=== PATIENT | male | born 1965 | race Caucasian/White ===

== ENCOUNTER → 2018-07-06 | Outpatient (CLI) | payer OTHER ==
--- NOTE | 2018-07-06 12:22 | US ---
EXAMINATION TYPE: US scrotum with doppler. DATE OF EXAM: 07/06/2018 COMPARISON: NONE CLINICAL HISTORY: 53-year-old male N50.8 specified disorders of male genital organs. Larger left test icle as compared to right, no pain, no injury, patient noticed change in size for 1 year TECHNIQUE: Grayscale and color Doppler Duplex imaging performed of the scrotum. FINDINGS: EXAM MEASUREMENTS: TESTICLES: Right Testicle: 4.1 x 2.8 x 2.7 cm Left Testicle: 4.4 x 2.9 x 2.4 cm Relatively symmetric size and appearance of both testicles with homogeneous echotexture and satisfact ory arterial and venous flow. EPIDIDYMIS HEAD: Right Epididymis: 0.9 cm Left Epididymis: 0.8 cm Doppler performed to assess for testicular vascularity; good bilateral color flow and waveforms are s een. There is no evidence of testicular torsion. Presence of hydroceles: Moderate on the right. Multilocular cystic structure lateral and superior to the left testicle measuring up to 6.0 x 2.7 cm. Presence of varicoceles: no IMPRESSION: 1. Symmetric and normal-appearing testicles. No evidence for testicular torsion or testicular mass. 2. Moderate-sized simple hydrocele on the right. 3. Multilocular cystic structure lateral and superior to the left testicle measuring up to 6.0 x 2.7 cm. Some differential considerations include a complex, septated hydrocele and cystadenoma. Urology r eferral to further evaluate.
== END | disposition home or self-care (01) ==
LOC: RADUSWWP 10:26
PROVIDERS: ATTEND Internal Medicine
DX: N43.3 Hydrocele, unspecified (principal); N44.2 Benign cyst of testis
CPT/HCPCS: 76870; 93975

== ENCOUNTER → 2018-09-14 | Outpatient (CLI) | payer OTHER ==
[2018-09-14 08:51] LABS: Basophils # (A) 0.1 k/uL (0-0.2); Basophils % (A) 1 %; Eosinophils # (A) 0.5 k/uL (0-0.7); Eosinophils % (A) 4 %; HCT 49.2 % (39.0-53.0); HGB 16.6 gm/dL (13.0-17.5); Lymphocytes # (A) 2.9 k/uL (1.0-4.8); Lymphocytes % (A) 19 %; MCH 31.2 pg (25.0-35.0); MCHC 33.7 g/dL (31.0-37.0); MCV 92.5 fL (80.0-100.0); Mean Platelet Volume 7.4; Monocytes % (A) 7 %; Neutrophils # (A) 10.2 k/uL (1.3-7.7); Neutrophils % (A) 68 %; Platelet Count 268 k/uL (150-450); RBC 5.32 m/uL (4.30-5.90); RDW 12.3 % (11.5-15.5)
[2018-09-14 09:05] LABS: Prothrombin Time 10.7 sec (9.0-12.0)
[2018-09-14 09:12] LABS: Albumin 4.3 g/dL (3.5-5.0); Bilirubin, Delta 0.2 mg/dL (0.0-0.2); Bilirubin,Unconjugated 0.4 mg/dL (0.0-1.1); Total Bilirubin 0.6 mg/dL (0.2-1.3); Total Protein 7.5 g/dL (6.3-8.2)
--- NOTE | 2018-09-14 16:31 | US ---
EXAMINATION TYPE: US liver DATE OF EXAM: 09/14/2018 COMPARISON: NONE CLINICAL HISTORY: B18.2 CHRONIC HEP C. Viral hep C, patient states no other symptoms. EXAM MEASUREMENTS: Liver Length: 19.6 cm Gallbladder Wall: 0.2 cm CBD: 0.5 cm Right Kidney: 10.9 x 5.3 x 5.0 cm Pancreas: obscured by overlying midline bowel gas Liver: enlarged, mildly heterogeneous Gallbladder: wnl Evidence for sonographic Escudero's sign: no CBD: wnl Right Kidney: wnl IMPRESSION: 1. Liver is enlarged. No discrete masses are evident.
[2018-09-16 13:52] LABS: HCV Quant Log 5.63 (<1.08)
== END ==
LOC: RADUSWWP 07:40
PROVIDERS: ATTEND Physician Assistant
DX: R16.0 Hepatomegaly, not elsewhere classified (principal); B18.2 Chronic viral hepatitis C
CPT/HCPCS: 36415; 76705; 80076; 85025; 85610; 87522

== ENCOUNTER → 2018-12-18 | Outpatient (CLI) | payer OTHER ==
[2018-12-18 11:23] LABS: Basophils # (A) 0.1 k/uL (0-0.2); Basophils % (A) 1 %; Eosinophils # (A) 0.5 k/uL (0-0.7); Eosinophils % (A) 4 %; HCT 49.5 % (39.0-53.0); HGB 16.6 gm/dL (13.0-17.5); Lymphocytes # (A) 2.2 k/uL (1.0-4.8); Lymphocytes % (A) 18 %; MCH 30.7 pg (25.0-35.0); MCHC 33.6 g/dL (31.0-37.0); MCV 91.3 fL (80.0-100.0); Mean Platelet Volume 8.2; Monocytes # (A) 0.8 k/uL (0-1.0); Monocytes % (A) 6 %; Neutrophils # (A) 8.3 k/uL (1.3-7.7); Neutrophils % (A) 69 %; Platelet Count 258 k/uL (150-450); RBC 5.42 m/uL (4.30-5.90); RDW 11.8 % (11.5-15.5); WBC 12.1 k/uL (3.8-10.6)
[2018-12-18 17:23] LABS: Albumin 4.8 g/dL (3.80-4.90); Albumin/Globulin Ratio 1.92 (1.60-3.17); Bilirubin, Conjugated 0.2 mg/dL (0.20-0.40); Bilirubin,Unconjugated 0.4 mg/dL; Globulin 2.5 g/dL (1.6-3.3); Total Bilirubin 0.6 mg/dL (0.3-1.2); Total Protein 7.3 g/dL (6.2-8.2)
[2018-12-21 08:24] LABS: Hepatits C Virus RNA DETECTED (Not detected); Hepatits C Virus RNA, Quant <12 IU/mL (<12); LOG HCV IU/mL <1.08 (<1.08)
== END | disposition home or self-care (01) ==
LOC: LABWHC1 10:54
PROVIDERS: ATTEND Physician Assistant
DX: B18.2 Chronic viral hepatitis C (principal)
CPT/HCPCS: 36415; 80076; 85025; 87522

== ENCOUNTER → 2019-01-12 | Outpatient (CLI) | payer OTHER ==
[2019-01-12 11:26] LABS: Basophils # (A) 0.1 k/uL (0-0.2); Basophils % (A) 1 %; Eosinophils # (A) 0.6 k/uL (0-0.7); Eosinophils % (A) 5 %; HCT 46.7 % (39.0-53.0); HGB 15.8 gm/dL (13.0-17.5); Lymphocytes # (A) 2.4 k/uL (1.0-4.8); Lymphocytes % (A) 20 %; MCH 30.8 pg (25.0-35.0); MCHC 33.9 g/dL (31.0-37.0); MCV 90.8 fL (80.0-100.0); Mean Platelet Volume 8.5; Monocytes # (A) 0.8 k/uL (0-1.0); Monocytes % (A) 6 %; Neutrophils # (A) 7.8 k/uL (1.3-7.7); Neutrophils % (A) 65 %; Platelet Count 222 k/uL (150-450); RBC 5.14 m/uL (4.30-5.90); RDW 13.2 % (11.5-15.5); WBC 11.9 k/uL (3.8-10.6)
[2019-01-12 17:27] LABS: ALT 25 U/L (10-49); AST 28 U/L (14-35); Alkaline Phosphatase 76 U/L (41-126); Globulin 2.3 g/dL (1.6-3.3); Total Bilirubin <0.1 mg/dL (0.2-1.2); Total Protein 6.9 g/dL (6.2-8.2)
== END | disposition home or self-care (01) ==
LOC: LABWHC1 10:16
PROVIDERS: ATTEND Physician Assistant
DX: B18.2 Chronic viral hepatitis C (principal)
CPT/HCPCS: 36415; 80076; 85025; 85610; 87522

== ENCOUNTER → 2023-07-02 | Day surgery (SDC) | payer OTHER ==
--- NOTE | 2023-07-01 19:07 | P.GSHP ---
History of Present Illness H&P Date: 07/01/23 58 yo male with a symptomatic right hydrocele who comes for a right hydrocelectomy. The risks , complications and alternatives have been explained understood and accepted - Constitutional Constitutional: Denies chills, Denies fever - EENT Eyes: denies blurred vision, denies pain Ears, nose, mouth and throat: Denies headache, Denies sore throat - Cardiovascular Cardiovascular: Denies chest pain, Denies shortness of breath - Respiratory Respiratory: Denies cough, Denies 7 - Gastrointestinal Gastrointestinal: Denies abdominal pain, Denies diarrhea, Denies nausea, Denies vomiting - Genitourinary (Female) Genitourinary: Denies dysuria, Denies hematuria - Genitourinary (Male) Genitourinary: Denies dysuria, Denies hematuria - Musculoskeletal Musculoskeletal: Denies myalgias - Integumentary Integumentary: Denies pruritus, Denies rash - Neurological Neurological: Denies numbness, Denies weakness - Psychiatric Psychiatric: Denies anxiety, Denies depression - Endocrine Endocrine: Denies fatigue, Denies weight change Medications and Allergies Allergies Allergy/AdvReac Type Severity Reaction Status Date / Time No Known Allergies Allergy Verified 06/27/23 10:28 Surgical - Exam - General well developed, well nourished, no distress - Eyes normal ocular movement, no icteric - ENT no hearing loss, no congestion - Neck no masses, trachea midline - Respiratory normal respiratory effort, clear to auscultation - Abdomen Abdomen: soft, non tender, no guarding, no rigid, no rebound - Genitourinary large right hydrocele - Integumentary no rash, no abnormal pigmentation - Neurologic no disoriented, no combative - Psychiatric oriented to time, oriented to person, oriented to place, speech is normal, memory intact Assessment and Plan Assessment: Impression: right hydrocele Plan: right hydrocelectomyi
[~2023-07-02] MED LIST: BUPIVACAINE (PF) 0.5% 30 ML VIAL SQ ONE; DEXAMETHASONE SOD PHOSPHATE 4 MG/ML 1 ML VIAL IV ONE; DEXAMETHASONE SOD PHOSPHATE 4 MG/ML 1 ML VIAL IVP ONE; HYDROmorphone 0.5 MG/0.5 ML SYRINGE IVP PRN; KETOROLAC 15 MG/ML 1 ML VIAL ONE; LACTATED RINGERS 1,000 ML IV SCH; LIDOCAINE 1% (10MG/ML) FOR IV START INTRADERMA PRN; LIDOCAINE 1% INJ 10MG/ML (20 ML MDV) ONE; MIDAZOLAM 2 MG/2 ML VIAL IV PRN; MIDAZOLAM 2 MG/2 ML VIAL ONE; ONDANSETRON 4 MG/2 ML VIAL IVP ONE; PROPOFOL 10 MG/ML 20 ML VIAL IV ONE; Pre Op ABX Message 1 EACH MISC MISCELLANE ONE; SUCCINYLCHOLINE CHLORIDE 200 MG/10 ML VIAL IV ONE; fentaNYL (PF) 50 MCG/ML 2 ML AMP ONE
[2023-07-02 10:14] VITALS: TEMP 97.6
--- NOTE | 2023-07-02 12:00 | P.OP ---
Date of Procedure: 07/02/23 Preoperative Diagnosis: Right hydrocele Postoperative Diagnosis: Same Procedure(s) Performed: Right hydrocelectomy Anesthesia: GETA Surgeon: Ihsan Jain Estimated Blood Loss (ml): 10 Pathology: none sent Condition: stable Disposition: PACU Indications for Procedure: The patient is 58. He has a large right hydrocele. He comes for surgical excision Description of Procedure: Patient brought to the operating suite. Given a general anesthetic. Prepped and draped sterilely. The right hydrocele was noted. I dissect in the midline. I then dissected over the right testicle. The tunica vaginalis was opened and proximally 300 mL of clear yellow fluid is drained. The testicles inspected and is normal. I then accordion the reseal sac behind the testicle around the cord using interrupted 3-0 chromic suture. The testicle remained viable. The te sticles placed back in the scrotum and closed in 2 layers of 3-0 chromic running. I then do a right cord block with 10 mL of half percent Marcaine plain. The patient is awakened and returned recovery room good condition. He tolerated procedure well. Blood loss is minimal. He'll be discharged home upon recovery and found the office in one week.
[2023-07-02 12:48] VITALS: RESP 16
[2023-07-02 13:14] VITALS: BP 158/106; PULSE 71
== END | disposition home or self-care (01) ==
LOC: OR 08:06
PROVIDERS: ATTEND Urology
DX: N43.3 Hydrocele, unspecified (principal); I10 Essential (primary) hypertension; K21.9 Gastro-esophageal reflux disease without esophagitis; Z79.899 Other long term (current) drug therapy
CPT/HCPCS: 55040; J2250; J0330; J1100; J2405; J2001; J3010; J1885; J2704; J0665